=== PATIENT | male | born 1995 | race Caucasian/White ===

== ENCOUNTER 2022-04-26 00:12 | Emergency (ER) | payer SELFPAY ==
[2022-04-26 05:03] VITALS: BP 133/82
--- NOTE | 2022-04-26 05:20 | Emergency Department Report ---
ED Male HPI - General Chief complaint: Urogenital-Male Stated complaint: STD CHECK Time Seen by Provider: 04/26/22 03:53 Source: patient Mode of arrival: Ambulatory Limitations: No Limitations - History of Present Illness Initial comments: 26-year-old male unprotected sex he began to develop burning and with urination and penile discharge of a yellowish-brownish color. No flank pain no hematuria, no fever, chills, sweats. No testicular pain or swelling MD Complaint: penile discharge -: Gradual Location: penis Radiation: none Severity: mild Quality: burning Consistency: constant Improves with: none Worsens with: none new medication discharge. denies: urinary retention, blood in urine - Related Data Sexually active: Yes Previous Rx's Medication Instructions Recorded Last Taken Type Azithromycin [Zithromax TAB] 1,000 mg PO ONCE #2 tablet 04/26/22 Unknown Rx ceFIXime [Cefixime] 400 mg PO ONCE #1 capsule 04/26/22 Unknown Rx metroNIDAZOLE [Flagyl] 2,000 mg PO ONCE #4 tablet 04/26/22 Unknown Rx Allergies Allergy/AdvReac Type Severity Reaction Status Date / Time No Known Allergies Allergy Unverified 04/26/22 01:42 ED Review of Systems ROS: Stated complaint: STD CHECK Other details as noted in HPI Comment: All other systems reviewed and negative ED Past Medical Hx - Social History Smoking Status: Current Every Day Smoker Substance Use Type: None - Medications Home Medications: Home Medications Medication Instructions Recorded Confirmed Last Taken Type Azithromycin [Zithromax TAB] 1,000 mg PO ONCE #2 tablet 04/26/22 Unknown Rx ceFIXime [Cefixime] 400 mg PO ONCE #1 capsule 04/26/22 Unknown Rx metroNIDAZOLE [Flagyl] 2,000 mg PO ONCE #4 tablet 04/26/22 Unknown Rx ED Physical Exam - General Limitations: No Limitations General appearance: alert, in no apparent distress - Head Head exam: Present: atraumatic, normocephalic - Eye Eye exam: Present: normal appearance, PERRL, EOMI - ENT ENT exam: Present: mucous membranes moist - Neck Neck exam: Present: normal inspection - Respiratory Respiratory exam: Present: normal lung sounds bilaterally. Absent: respiratory distress - Cardiovascular Cardiovascular Exam: Present: regular rate, normal rhythm. Absent: systolic murmur, diastolic murmur, rubs, gallop - GI/Abdominal GI/Abdominal exam: Present: soft, normal bowel sounds - Rectal Rectal exam: Present: deferred - Extremities Exam Extremities exam: Present: normal inspection - Back Exam Back exam: Present: normal inspection - Neurological Exam Neurological exam: Present: alert, oriented X3 - Psychiatric Psychiatric exam: Present: normal affect, normal mood - Skin Skin exam: Present: warm, dry, intact, normal color. Absent: rash ED Course Vital Signs 04/26/22 04/26/22 01:40 04:46 Temperature 97.9 F 98.4 F Pulse Rate 63 56 L Respiratory 18 16 Rate Blood Pressure 108/75 Blood Pressure 133/82 [Right] O2 Sat by Pulse 100 100 Oximetry Critical care attestation.: If time is entered above; I have spent that time in minutes in the direct care of this critically ill patient, excluding procedure time. ED Disposition Clinical Impression: Possible exposure to STD Disposition: 01 HOME / SELF CARE / HOMELESS Is pt being admited?: No Does the pt Need Aspirin: No Condition: Stable Instructions: Safe Sex Prescriptions: ceFIXime [Cefixime] 400 mg PO ONCE #1 capsule metroNIDAZOLE [Flagyl] 2,000 mg PO ONCE #4 tablet Azithromycin [Zithromax TAB] 1,000 mg PO ONCE #2 tablet Referrals: [facility] [Provider Group] - 3-5 Days [facility] [Outside] - 3-5 Days
== END 2022-04-26 04:47 | disposition home or self-care (01) ==
LOC: ED 00:12
DX: Z20.2 Contact with and (suspected) exposure to infections with a predominantly sexual mode of transmission (principal); R30.0 Dysuria; R36.9 Urethral discharge, unspecified; F17.200 Nicotine dependence, unspecified, uncomplicated; Z79.899 Other long term (current) drug therapy
CPT/HCPCS: 87591; 99282; 99283